=== PATIENT | male | born 1935 | race Caucasian/White ===

== ENCOUNTER 2025-04-22 20:13 | Observation (INO) | payer MEDICARE ==
[~2025-04-22] VITALS: Ht 177.8 cm; Wt 64.9 kg
[2025-04-22 21:14] LABS: KETONE, URINE AUTO RFX NEGATIVE (NEGATIVE); MUCUS, URINE RFX SMALL (NEGATIVE); NITRITE, URINE AUTO RFX NEGATIVE (NEGATIVE); RBC, URINE AUTO RFX 6 /HPF (0-3); SQUAM EPITHELIAL CELL UR AURFX 1 /HPF (0-6)
[2025-04-22 21:16] LABS: LEUKOCYTE ESTERASE UR AUTO RFX 2+ (NEGATIVE); WBC, URINE AUTO RFX 81 /HPF (0-3)
[2025-04-22 21:35] LABS: BASO # 0.0 10^3/uL (0.0-0.2); BASO % 0.4 % (0.0-1.0); EOS # 0.0 10^3/uL (0.0-0.5); EOS % 0.0 % (0.0-3.0); LYMPH # 1.6 10^3/uL (1.5-5.0); LYMPH % 29.6 % (24.0-44.0); MONO # 0.6 10^3/uL (0.0-0.8); MONO % 11.2 % (2.0-8.0); NEUTROPHILS # 3.1 10^3/uL (1.5-8.5); NEUTROPHILS % 58.2 % (36.0-66.0); PLATELET COUNT, AUTOMATED 105 10^3/uL (150-450)
[2025-04-22] MEDS: ACETAMINOPHEN *IV* 1,000 MG in IV 1 EA IV ONE (21:50)
[2025-04-22] MEDS: NS 500 ML IV ONE (21:55)
[2025-04-22 21:57] LABS: CALCIUM LEVEL 8.8 MG/DL (8.3-10.6); CARBON DIOXIDE LEVEL 27.0 MMOL/L (20-31); CHLORIDE LEVEL 105.0 MMOL/L (98-107); CREATININE FOR GFR 0.98 MG/DL (0.70-1.30); GLOMERULAR FILTRATION RATE 73.7 (>35); POTASSIUM SERUM 4.4 MMOL/L (3.5-5.1); SODIUM LEVEL 142.0 MMOL/L (136-145)
[2025-04-22] MEDS: KETOROLAC 30 MG/ML 1 ML VIAL IV ONE (23:58)
[2025-04-23 01:01] LABS: MAGNESIUM LEVEL 1.8 MG/DL (1.8-2.4)
[2025-04-23] MEDS ORDERED: ISOVUE-370 76% 100 ML VIAL As Ordered ONE (01:09)
[2025-04-23] MEDS ORDERED: MOM 30 ML SUSPENSION UDC PO PRN (03:35)
[2025-04-23] MEDS ORDERED: ALBUTEROL 90 MCG/ACT 8 GM HFA INHALER INH PRN (04:50)
[2025-04-23 05:08] VITALS: BP 116/66; TEMP 97.7; O2SAT 97
[2025-04-23 05:46] LABS: D-DIMER QUANT 2.13 ug/mL (<0.5); INR 1.16
[2025-04-23 05:52] LABS: LDH LACTATE DEHYDROGENASE 154.0 U/L (120-246)
[2025-04-23 05:53] LABS: C REACTIVE PROTEIN QUANTITATIV 5.13 MG/DL (<1.0)
[2025-04-23 06:02] LABS: ALT/SGPT 20.0 U/L (7.0-40); AST/SGOT 26.0 U/L (<34)
[2025-04-23] MEDS: REMDESIVIR 200 MG in NS 250 ML IV ONE (06:05)
[2025-04-23] MEDS ORDERED: METO1TAB32 PO (09:05)
[2025-04-23] MEDS ORDERED: FINA5TAB2 PO (09:05)
[2025-04-23] MEDS ORDERED: TAMS1CAP17 PO (09:05)
[2025-04-23] MEDS ORDERED: HOME MED LIST COMPLETE! XX SCH (09:10)
[2025-04-23 09:29] LABS: PSA SCREENING 1.49 NG/ML (< 4.00)
[2025-04-23] MEDS: cefTRIAXone SOD 1 GM in DEXTROSE 5% (D5W) ADV/MINI-BAG 50 ML IV SCH (09:52)
[2025-04-23] MEDS: DOCUSATE SODIUM 100 MG CAPSULE PO SCH (09:52)
[2025-04-23] MEDS: ENOXAPARIN 40 MG/0.4 ML SYRINGE (J1650 PER 10MG) SC SCH (09:52)
[2025-04-23 12:00] VITALS: BP 117/63; TEMP 98.1; O2SAT 97
[2025-04-23] MEDS: DEXTROMETHORPHAN 60 MG/10 ML SUSP 90 ML BTL PO PRN (12:41)
[2025-04-23 16:00] VITALS: BP 117/65; TEMP 100.2; O2SAT 95
[2025-04-23] MEDS: ACETAMINOPHEN 325 MG TAB PO PRN (18:55)
[2025-04-23] MEDS: METOPROLOL SUCC *XL* 12.5 MG PER 1/2 TAB PO SCH (19:00)
[2025-04-23] MEDS: FINASTERIDE 5 MG TAB PO SCH (19:01)
[2025-04-23] MEDS: TAMSULOSIN 0.4 MG CAP PO SCH (19:01)
[2025-04-23 20:30] VITALS: BP 117/59; TEMP 99.5; O2SAT 90
[2025-04-24] VITALS (10 sets, daily range): BP systolic 86–132; BP diastolic 60–76; TEMP 97.9–100.3; O2SAT 93–98
[2025-04-24] MEDS: MAALOX 30 ML SUSP *UDC PO PRN (04:36)
[2025-04-24 06:24] LABS: BASO # 0.0 10^3/uL (0.0-0.2); BASO % 0.7 % (0.0-1.0); EOS # 0.0 10^3/uL (0.0-0.5); EOS % 0.0 % (0.0-3.0); LYMPH # 2.6 10^3/uL (1.5-5.0); LYMPH % 48.2 % (24.0-44.0); MONO # 0.7 10^3/uL (0.0-0.8); MONO % 13.1 % (2.0-8.0); NEUTROPHILS # 2.0 10^3/uL (1.5-8.5); NEUTROPHILS % 37.6 % (36.0-66.0)
[2025-04-24 06:46] LABS: ALT/SGPT 18.0 U/L (7.0-40); AST/SGOT 24.0 U/L (<34); CALCIUM LEVEL 8.3 MG/DL (8.3-10.6); CARBON DIOXIDE LEVEL 24.0 MMOL/L (20-31); CHLORIDE LEVEL 108.0 MMOL/L (98-107); CREATININE FOR GFR 0.9 MG/DL (0.70-1.30); GLOMERULAR FILTRATION RATE 81.6 (>35); MAGNESIUM LEVEL 1.8 MG/DL (1.8-2.4); POTASSIUM SERUM 3.9 MMOL/L (3.5-5.1); SODIUM LEVEL 142.0 MMOL/L (136-145)
[2025-04-24 07:02] LABS: PLATELET COUNT, AUTOMATED 87 10^3/uL (150-450)
[2025-04-24] MEDS ORDERED: ALBUTEROL 90 MCG/ACT 8 GM HFA INHALER INH SCH ×2 (14:00→14:53)
[2025-04-24] MEDS: ALBUTEROL 90 MCG/ACT 8 GM HFA INHALER INH SCH (15:34)
[2025-04-24] MEDS: RAMELTEON 8 MG TAB PO PRN (20:54)
[2025-04-24] MEDS: NS (Normal Saline) 0.9% 1,000 ML IV ONE (22:35)
[2025-04-24] MEDS: METOPROLOL 5 MG/5 ML VIAL IV STA (22:35)
[2025-04-24] MEDS ORDERED: METOPROLOL 5 MG/5 ML VIAL IV PRN (22:40)
[2025-04-24 22:53] LABS: PLATELET COUNT, AUTOMATED 101 10^3/uL (150-450)
[2025-04-24] MEDS: METOPROLOL TART 12.5 MG PER 1/2 TAB PO SCH (23:10)
[2025-04-24 23:18] LABS: CK-MB VALUE MASS 1.2 NG/ML (<3.6)
[2025-04-24 23:19] LABS: CPK CREATINE PHOSPHOKINASE 31.0 U/L (46-171); MB/CK RELATIVE INDEX 3.87 (< OR =4)
[2025-04-24 23:33] LABS: ATYPICAL LYMPH 4 % (0-5); BASOPHILS 1 % (0-1); LYMPHOCYTES 33 % (16-44); MONOCYTES 13 % (0-5); NEUTROPHILS 48 % (28-66)
[2025-04-24 23:36] LABS: PLATELET ESTIMATE DECREASED (NORMAL)
[2025-04-24 23:40] LABS: ALT/SGPT 18.0 U/L (7.0-40); AST/SGOT 26.0 U/L (<34); CALCIUM LEVEL 8.1 MG/DL (8.3-10.6); CARBON DIOXIDE LEVEL 23.0 MMOL/L (20-31); CHLORIDE LEVEL 107.0 MMOL/L (98-107); CREATININE FOR GFR 0.92 MG/DL (0.70-1.30); GLOMERULAR FILTRATION RATE 79.5 (>35); MAGNESIUM LEVEL 1.9 MG/DL (1.8-2.4); PHOSPHORUS LEVEL 3.7 MG/DL (2.4-5.1); POTASSIUM SERUM 3.7 MMOL/L (3.5-5.1); SODIUM LEVEL 142.0 MMOL/L (136-145)
[2025-04-25] VITALS (11 sets, daily range): BP systolic 98–109; BP diastolic 55–62; TEMP 97.7–98.4; O2SAT 94–97
[2025-04-25] MEDS: POTASSIUM CHLORIDE 10MEQ SR TABLET PO ONE (01:06)
[2025-04-25] MEDS: MAG SULF 1GM/100ML (MAG RUN) 1 GM in IV 1 EA IV ONE (01:07)
[2025-04-25 05:07] LABS: BASO # 0.0 10^3/uL (0.0-0.2); BASO % 0.5 % (0.0-1.0); EOS # 0.0 10^3/uL (0.0-0.5); EOS % 0.2 % (0.0-3.0); LYMPH # 3.8 10^3/uL (1.5-5.0); LYMPH % 59.2 % (24.0-44.0); MONO # 0.6 10^3/uL (0.0-0.8); MONO % 8.9 % (2.0-8.0); NEUTROPHILS # 2.0 10^3/uL (1.5-8.5); NEUTROPHILS % 30.7 % (36.0-66.0)
[2025-04-25 05:08] LABS: PLATELET COUNT, AUTOMATED 92 10^3/uL (150-450)
[2025-04-25 05:35] LABS: ALT/SGPT 17.0 U/L (7.0-40); AST/SGOT 24.0 U/L (<34); CALCIUM LEVEL 8.1 MG/DL (8.3-10.6); CARBON DIOXIDE LEVEL 24.0 MMOL/L (20-31); CHLORIDE LEVEL 110.0 MMOL/L (98-107); CREATININE FOR GFR 0.82 MG/DL (0.70-1.30); GLOMERULAR FILTRATION RATE 84.0 (>35); MAGNESIUM LEVEL 2.1 MG/DL (1.8-2.4); POTASSIUM SERUM 4.1 MMOL/L (3.5-5.1); SODIUM LEVEL 143.0 MMOL/L (136-145)
[2025-04-25] MEDS ORDERED: CEFP200T PO (12:28)
== END 2025-04-25 14:54 | disposition home or self-care (01) ==
LOC: M ED 20:13 → INTOOBSV 04-23 03:34 → M ED INP 04-23 03:34 → M MSPAV 04-23 04:34 → M PCU 04-24 22:25
PROVIDERS: ADMIT Student in an Organized Health Care Education/Training Program; ATTEND Internal Medicine Nephrology
DX: U07.1 COVID-19 (principal); R53.1 Weakness; I47.10 Supraventricular tachycardia, unspecified; I95.9 Hypotension, unspecified; N41.3 Prostatocystitis; D41.4 Neoplasm of uncertain behavior of bladder; R07.89 Other chest pain; N40.1 Benign prostatic hyperplasia with lower urinary tract symptoms; R35.0 Frequency of micturition; R39.15 Urgency of urination; J43.9 Emphysema, unspecified; Z87.442 Personal history of urinary calculi; I10 Essential (primary) hypertension; M19.90 Unspecified osteoarthritis, unspecified site; M54.9 Dorsalgia, unspecified; Z96.82 Presence of neurostimulator; Z79.899 Other long term (current) drug therapy; Z12.5 Encounter for screening for malignant neoplasm of prostate
CPT/HCPCS: 36415; 71045; 72193; 80048; 80053; 80076; 81001; 82550; 82553; 82728; 83605; 83615; 83735; 83880; 84100; 84145; 84484; 85025; 85049; 85055; 85379; 85384; 85610; 85730; 86140; 87040; 87088; 87186; 87486; 87581; 87633; 87798; 88108; 93005; 93306; 94640; 96361; 96372; 96374; 96375; 96376; 97161; 99285; G0103; G0378; J0131; J0248; J0616; J0696; J1650; J1885; J3475; Q9967